=== PATIENT | male | born 1975 | race Caucasian/White ===

== ENCOUNTER 2020-05-18 08:30 | Emergency (ER) | payer OTHER, SELFPAY ==
--- NOTE | ~2020-05-18 | US_ITS ---
EXAMINATION: US abdomen limited EXAM DATE: 05/18/2020 09:47 INDICATION: Right upper quadrant tenderness and nausea. TECHNIQUE: Multiple grayscale and Doppler images of the abdomen right upper quadrant were obtained (b y a technologist who performed the scan) and subsequently reviewed. There is no prior study for altaf metz. FINDINGS: The pancreatic head and body are normal in appearance. The pancreatic tail is not visualized. There is echogenic liver parenchyma, hepatic steatosis. There are no focal liver lesions identified. Th ere is no evidence of intrahepatic biliary duct dilation. Portal venous flow was seen in the hepatop edal, normal direction and has normal Doppler waveform. No right-sided hydronephrosis. Common bile duct measures 7 mm, which is mildly dilated. Gallbladder is with expected amount of diste ntion, no calcified cholelithiasis, wall thickening or pericholecystic fluid. Technologist noted maxi mal tenderness over the otherwise sonographically unremarkable gallbladder. IMPRESSION: 1. Right upper quadrant tenderness. Sonographically normal gallbladder. 2. Mildly dilated CBD. 3. Hepatic steatosis. 4. If elevated bilirubin is present, or symptoms persist consider CT, MRCP, or HIDA scan. Reviewed, dictated and finalized at location A. EMS PROJECT MANAGER
[2020-05-18 08:40] VITALS: BP 166/105; PULSE 84; RESP 17; TEMP 36.6; O2SAT 96
--- NOTE | 2020-05-18 08:53 | ED.ABDPAIN ---
HPI - Abdominal Pain General Chief Complaint: Abdominal Pain Stated Complaint: ABD PAIN Time Seen by Provider: 05/18/20 08:56 Source: patient Mode of arrival: ambulatory Limitations: no limitations History of Present Illness HPI narrative: 45-year-old man comes in today complaining of right upper quadrant pain that started yesterday and was intermittent but became more severe this morning. It is now constant and associated with sweats and nausea. He has had no Chest pain, shortness of breath,fever, vomiting, diarrhea, cough or cold symptoms, blood in his stool, black stools, dysuria or hematuria. He has remote history of a urolith but states this feels different. he did not eat anything this morning. MD elicited complaint: abdominal pain Pertinent past history: kidney stones Onset (ago): day(s) (1) Pain Consistency: constant Location: RUQ Severity: moderate Quality: stabbing Radiation: back Migration to: no migration Exacerbating factors: nothing Relieving factors: nothing Associated symptoms: nausea Related Data Allergies Allergy/AdvReac Type Severity Reaction Status Date / Time Sulfa (Sulfonamide Allergy Mild Hives Verified 04/21/20 09:22 Antibiotics) Review of Systems Constitutional: Constitutional: Denies chills, Denies fever(s) and Denies weakness Eyes: Eyes: Denies change in vision and Denies photophobia ENT: Denies dysphagia, Denies nasal congestion and Denies sore throat Cardiovascular: Cardiovascular: Denies chest pain and Denies radiating jaw, neck or arm pain Respiratory: Respiratory: Denies cough and Denies dyspnea Gastrointestinal: Gastrointestinal: Reports as per HPI Genitourinary: Genitourinary: Denies hematuria, Denies dysuria and Denies urinary frequency Musculoskeletal: Musculoskeletal: Denies arthralgias and Denies joint swelling Integumentary/Breasts: Skin/Breast: Denies pruritus, Denies erythema and Denies rash Neurologic: Denies vertigo, Denies dizziness and Denies syncope Hematologic/Lymphatic: Hematologic/Lymphatic: Denies easy bleeding and Denies easy bruising Allergic/Immunologic: Allergic/Immunologic: Denies lip swelling and Denies throat swelling PMFSH Past Medical History Medical History (Updated 05/18/20 @ 10:26 by Keith Viveros MD) Attention and concentration deficit Elevated blood pressure reading without diagnosis of hypertension Erectile dysfunction Social History Social History (Updated 05/18/20 @ 09:07 by Keith Viveros MD) Smoking status: Never smoker Alcohol intake: current Substance use: never Living arrangements: with family Exam Const: General: alert Nutritional Appearance: obese Orientation/consciousness: patient oriented x3 Limitations: no limitations Other: [id number] acute distress. HENMT: General nose exam: Normal nares present Face and sinus: normal facial exam Mouth: Yes moist mucous membranes Throat: posterior oropharynx normal Eyes: Conjunctivae: conjunctivae normal Pupils: Equal, round and reactive pupils present EOM: EOMs intact bilaterally Resp: Effort & Inspection: normal respiratory effort and not labored Auscultation: clear to auscultation bilaterally, no rales, no rhonchi and no wheezes Cardio: Rate: regular rate Rhythm: regular rhythm Heart sounds: no murmurs GI: GI Palp: Yes Soft to palpation, Yes Tenderness to palpation present (GI) ( Right upper quadrant.) and No Guarding due to palpation present (GI) Auscultation: normal bowel sounds : General: Yes no CVA tenderness Skin: General skin exam: normal color, no jaundice and no pallor Rashes: no rashes Neuro: General: patient oriented x3, moves all extremities, no focal motor deficits and CN's II-XI intact bilaterally Cranial nerves: Yes Nystagmus not present Speech: normal speech Gait exam (Neuro): Normal gait present Extrem: General: normal to inspection and no clubbing, cyanosis or edema Psych: Appearance: grossly normal and well ke
[2020-05-18] MEDS: PANTOPRAZOLE SODIUM IV 40 MG VIAL IV PUSH (09:10)
[2020-05-18] MEDS: HYDROmorphone HCL INJ (*CRX) 2 MG/ML VIAL 0.5 MG IV PUSH (09:10)
[2020-05-18] MEDS: SODIUM CHLORIDE 0.9% IV 1,000 ML 999 ML IV CONT (09:11)
[2020-05-18] MEDS: ONDANSETRON INJ 4 MG/2 ML VIAL IV PUSH (09:11)
[2020-05-18 09:16] LABS: Add Urine Microscopic? NO; Appearance Urine Clear (Clear); Basophils Absolute Auto 0.05 K/mm3 (0.00-0.10); Basophils Percent Auto 0.5 % (0.0-1.0); Bilirubin Urine Negative (Negative); Blood Urine Negative (Negative); Color Urine Yellow (Yellow); Eosinophils Absolute Auto 0.24 K/mm3 (0.02-0.50); Eosinophils Percent Auto 2.3 % (1.0-6.0); Glucose Urine UA Negative (Negative); Hematocrit 43.2 % (40.0-54.0); Immature Granulocyte Absolute 0.06 K/mm3 (0.00-0.00); Immature Granulocyte Percent A 0.6 % (0.0-0.0); Ketones Urine Negative (Negative); Leukocyte Esterase Ur Negative LEU/UL (Negative); Lymphocytes Percent Auto 16.3 % (18.0-42.0); Mean Corpuscular HGB Conc 34.7 g/dL (32.0-36.0); Mean Corpuscular Hemoglobin 30.4 pg (27.0-31.0); Mean Corpuscular Volume 87.4 fL (78.0-102.0); Mean Platelet Volume 10.1 fl (8.7-11.0); Monocytes Absolute Auto 0.77 K/mm3 (0.10-0.90); Monocytes Percent Auto 7.4 % (2.0-11.0); Neutrophils Absolute Auto 7.6 K/mm3 (1.7-7.2); Neutrophils Percent Auto 72.9 % (50.0-70.0); Nitrate Urine Negative (Negative); Platelet Count Result 198 K/mm3 (150-420); Protein Urine Negative (Negative); Red Blood Count 4.94 M/mm3 (4.70-6.10); Red Cell Distribution Width 12.2 % (11.6-14.4); Specific Grav Ur >= 1.030 (1.010-1.020); Urobilinogen Urine 0.2 mg/dL (0.2-1.0); White Blood Count 10.4 K/mm3 (4.8-10.8); pH Urine 5.5 (5.0-8.0)
[2020-05-18 09:32] LABS: Alanine Aminotransferase 21 U/L (16-63); Albumin Level 3.6 g/dL (3.4-5.0); Alkaline Phosphatase 49 U/L (46-116); Anion Gap 4 mmol/L (8-16); Aspartate Amino Transferase 15 U/L (15-37); Bilirubin,Total 0.5 mg/dL (0.00-1.00); Blood Urea Nitrogen 17 mg/dL (7-18); Calcium 8.5 mg/dL (8.5-10.1); Carbon Dioxide 30 mmol/L (21-32); Chloride 103 mmol/L (98-108); Estimated Glomerular Filt Rate > 60; Glucose 125 mg/dL (70-99); Lipase 139 U/L (73-393); Osmolality Calculated 286 mOsm/kg (285-295); Potassium 4.1 mmol/L (3.5-5.1); Sodium 137 mmol/L (136-145); Total Protein 7.3 g/dL (6.4-8.2)
[2020-05-18 09:37] LABS: Lactic Acid Reflex 1.2 mmol/L (0.4-2.0)
[2020-05-18 10:26] LABS: Prothrombin Time 10.6 Seconds (9.64-11.0)
[2020-05-18 10:27] LABS: Partial Thromboplastin Time 26.8 SEC (23.90-30.70)
[2020-05-18 10:40] VITALS: RESP 15
== END 2020-05-18 10:40 | disposition home or self-care (01) ==
PROVIDERS: Emergency Provider Emergency Medicine; PCP Nurse Practitioner Family
DX: R10.11 Right upper quadrant pain (principal)
CPT/HCPCS: 36415; 76705; 80053; 81003; 83605; 83690; 85025; 85610; 85730; 96361; 96374; 96375; 99283; 99284; C9113; J1170; J2405; J7030

== ENCOUNTER 2020-05-20 10:32 | Outpatient (CLI) | payer OTHER, SELFPAY ==
--- NOTE | ~2020-05-20 | NM_ITS ---
EXAMINATION: NM hepatobiliary w pharm DATE: 05/20/2020 12:52 INDICATION: Right upper quadrant abdominal pain. COMPARISON: Ultrasound 05/18/2020 TECHNIQUE: 6.3 mCi Tc-99m mebrofenin (Choletec) was administered intravenously. Scintigraphic images of the abdomen were obtained for one hour. Then, sincalide (Kinevac) IV was administered, and imagin g was continued for 30 minutes. FINDINGS: There is normal clearance of radiotracer from the blood pool. There is homogeneous tracer u ptake by the liver. Activity progresses to the bowel and gallbladder. Gallbladder ejection fraction (GBEF) was 47%. Note that most patients with gallbladder dysfunction have GBEF < 35%, which overlaps with the broad normal range of 10-90%. IMPRESSION: 1. Normal hepatobiliary scintigraphy. Reviewed, dictated and finalized at location B. MICS TEACHER
== END 2020-05-20 10:33 | disposition home or self-care (01) ==
PROVIDERS: PCP Nurse Practitioner Family; Visit Provider Emergency Medicine
DX: R10.11 Right upper quadrant pain (principal)
CPT/HCPCS: 78227; A9537; J2805

== ENCOUNTER 2021-02-09 08:39 | Outpatient (CLI) | payer OTHER, SELFPAY ==
--- NOTE | ~2021-02-09 | MMUS_ITS ---
EXAMINATION: MM diagnostic mammo unilat RT, US breast RT limited HISTORY: Palpable right breast lump TECHNIQUE: Additional 3-D tomosynthesis images of the right breast were performed and synthetic 2-D i mages were generated. CAD analysis was submitted and interpreted. High resolution Limited right breas t ultrasound was performed. COMPARISON: None BREAST PARENCHYMAL COMPOSITION: Breast composed of scattered areas of fibroglandular density. FINDINGS: MAMMOGRAPHIC FINDINGS: There are no suspicious masses, calcifications or architectural distortion in the right breast to sug gest malignancy. There is bilateral asymmetric gynecomastia. ULTRASOUND: Limited right breast ultrasound: There is heterogeneous subareolar soft tissue without discrete mass or fluid collection. No sonographic evidence for malignancy. IMPRESSION: 1. No evidence for malignancy in the right breast. Bilateral asymmetric gynecomastia. Follow-up clini pérez management recommended. BI-RADS CATEGORY 2 - BENIGN FINDINGS Reviewed, dictated and finalized at location A. IMPRESSION: 1. No evidence for malignancy in the right breast. Bilateral asymmetric gynecom astia. Follow-up clinical management recommended. BI-RADS CATEGORY 2 - BENIGN FINDINGS
== END 2021-02-09 08:40 | disposition home or self-care (01) ==
LOC: CHSIMG 08:40
PROVIDERS: PCP Family Medicine; Visit Provider Family Medicine
DX: N63.14 Unspecified lump in the right breast, lower inner quadrant (principal); N63.12 Unspecified lump in the right breast, upper inner quadrant
CPT/HCPCS: 76642; 77065

== ENCOUNTER 2021-08-12 00:39 | Emergency (ER) | payer OTHER, SELFPAY ==
[2021-08-12 00:41] VITALS: BP 120/88; PULSE 70; RESP 16; TEMP 36.6; O2SAT 98
--- NOTE | 2021-08-12 01:00 | ED.EAR ---
HPI - Ear Problem General Chief complaint: Ear Stated complaint: ear pain Time Seen by Provider: 08/12/21 00:41 Source: patient and RN notes reviewed Mode of arrival: ambulatory Limitations: no limitations History of Present Illness MD Complaint: ear pain Location: left ear Duration: constant Severity: moderate Relieving factors: nothing Exacerbating factors: chewing Discharge from ear: Reports no Associated symptoms ear: external ear tenderness Treatment prior to arrival: oral analgesic Related Data Allergies Allergy/AdvReac Type Severity Reaction Status Date / Time Sulfa (Sulfonamide Allergy Mild Hives Verified 01/14/21 16:05 Antibiotics) diphtheria, pertussis, AdvReac Unknown Verified 08/12/21 00:49 tetanus vacc Review of Systems Review of Systems: All systems reviewed & are unremarkable except as noted in HPI and below PMFSH Past Medical History Medical History Attention and concentration deficit Breast mass in male Bronchitis Elevated blood pressure reading without diagnosis of hypertension Erectile dysfunction Otitis externa Otitis media Social History Social History Smoking status: Never smoker Alcohol intake: current Substance use: never Exam Const: General: no acute distress Nutritional Appearance: obese Orientation/consciousness: patient oriented x3 Limitations: no limitations HENMT: Head: normal to inspection General nose exam: Normal external nose present and Normal nares present Face and sinus: normal facial exam and sinuses nontender Mouth: Yes moist mucous membranes Other: tender left ear tragus, canal was mildly swollen and hyperemic with TM not seen. right TM dull and red. pharynx was mildly hyperemic. Eyes: Conjunctivae: conjunctivae normal Pupils: Equal, round and reactive pupils present EOM: EOMs intact bilaterally Neck: Neck: normal visual inspection and no lymphadenopathy Chest: Chest palpation & inspection: normal inspection of the chest Resp: Effort & Inspection: normal respiratory effort Auscultation: rhonchi and wheezes Cardio: Rate: regular rate Rhythm: regular rhythm GI: Inspection: distended Auscultation: normal bowel sounds : General: Yes bladder normal to palpation and Yes no CVA tenderness Male General Exam: Yes normal external exam Testes: Testes normal Back/Spine/Pelvis: Back: no CVA tenderness Skin: General skin exam: normal color Rashes: no rashes Neuro: General: patient oriented x3, moves all extremities, no meningeal signs, no focal motor deficits and CN's II-XI intact bilaterally Extrem: General: normal to inspection and no pedal edema Psych: Appearance: grossly normal Mental Status: mental status grossly normal Thought content: Yes Normal thought content present Course Course Emergency Course: Pt was stable in the ED, less painful. Reevaluation(s) Reevaluation #1: VSS Date: 08/12/21 Time: 00:53 Vital Signs Vital signs: Vital Signs Temperature 36.6 C 08/12/21 00:41 Pulse Rate 70 08/12/21 00:41 Respiratory Rate 16 08/12/21 00:41 Blood Pressure 120/88 08/12/21 00:41 Pulse Oximetry 98 08/12/21 00:41 Temperature 36.6 C 08/12/21 00:41 Pulse Rate 70 08/12/21 00:41 Respiratory Rate 16 08/12/21 00:41 Blood Pressure 120/88 08/12/21 00:41 Pulse Oximetry 98 08/12/21 00:41 Medical Decision Making Differential Diagnosis Differential Diagnosis: OE, OM, bronchitis. Vital Signs Vital Signs: Vital Signs Temperature 36.6 C 08/12/21 00:41 Pulse Rate 70 08/12/21 00:41 Respiratory Rate 16 08/12/21 00:41 Blood Pressure 120/88 08/12/21 00:41 Pulse Oximetry 98 08/12/21 00:41 Temperature 36.6 C 08/12/21 00:41 Pulse Rate 70 08/12/21 00:41 Respiratory Rate 16 08/12/21 00:41 Blood Pressure 120/88 08/12/21 00:41 Pulse Oximetry 98 08/12/21 00:
[2021-08-12] MEDS: guaiFENesin 12 HR 600 MG TABCR PO (01:06)
[2021-08-12] MEDS: KETOROLAC (*BKC) 60 MG/2 ML VIAL IM (01:06)
[2021-08-12 01:19] VITALS: BP 132/88; PULSE 80; RESP 20; TEMP 36.6; O2SAT 97
== END 2021-08-12 01:20 | disposition home or self-care (01) ==
PROVIDERS: Emergency Provider Emergency Medicine; PCP Family Medicine
DX: J40 Bronchitis, not specified as acute or chronic (principal); H60.502 Unspecified acute noninfective otitis externa, left ear; H66.90 Otitis media, unspecified, unspecified ear
CPT/HCPCS: 96372; 99283; A9270; J1885